=== PATIENT | female | born 1990 | race Caucasian/White ===

== ENCOUNTER 2021-02-26 14:20 | Emergency (ER) | payer SELFPAY ==
[~2021-02-26] VITALS: Ht 175.3 cm; Wt 84.1 kg
[~2021-02-26 14:20] MED LIST: PRENATAL1 TA2 PO
[2021-02-26] MEDS ORDERED: AMOXICILLIN875 MG PO (16:00)
[2021-02-26 16:14] VITALS: BP 104/65; PULSE 70
== END 2021-02-26 16:14 | disposition home or self-care (01) ==
LOC: COL.ER 14:20
DX: H65.93 Unspecified nonsuppurative otitis media, bilateral (principal)